=== PATIENT | male | born 1965 | race Caucasian/White ===

== ENCOUNTER 2022-09-11 05:57 | Day surgery (SDC) | payer BC ==
[2022-09-11] MEDS ORDERED: Lactated Ringers 1,000 ML IV SCH (06:30)
[2022-09-11] MEDS ORDERED: Xylocaine-Mpf 2% 5 Ml Vial ONE (07:53)
[2022-09-11] MEDS ORDERED: Versed 2 MG/2 ML Injection ONE (07:53)
[2022-09-11] MEDS ORDERED: DIPRIVAN 200 MG/20 ML IV ONE (07:53)
[2022-09-11 08:46] VITALS: O2SAT 94
[2022-09-11 09:09] VITALS: BP 114/88; PULSE 65
--- NOTE | 2022-09-11 09:15 | OP ---
SURGERY DATE/TIME: 09/11/2022 0756 PREOPERATIVE DIAGNOSIS: Screening exam. POSTOPERATIVE DIAGNOSIS: Normal colon. PROCEDURE: Colonoscopy. SURGEON: Dr. Tesfaye Echavarria. ANESTHESIA: MAC. Medications given by anesthesia department. HISTORY: The patient is a 57-year-old white male presenting now for screening colonoscopy. He was appraised of the risks of the procedure including the risk of perforation, phlebitis, untoward reaction to medication, bleeding and missed lesions. The patient verbalized his understanding and desired to have the procedure performed. DESCRIPTION OF PROCEDURE: The patient was given the medications by the anesthesia department. He had continuous pulse oximetry, ECG monitoring, intermittent blood pressure monitoring during the examination. He was placed in the left lateral decubitus position. A digital rectal examination was performed and revealed normal anal sphincter tone, no masses and a normal prostate. The flexible Olympus pediatric colonoscope was used to intubate the rectum. A view of the colon was developed sequentially to the cecum. Upon insertion and withdrawal, including a retroflex view in the rectum, no mucosal lesions were encountered. The scope was removed from the patient who tolerated the procedure well and was sent back to outpatient recovery in good condition. The prep was noted to be fair to good.
== END 2022-09-11 09:07 | disposition home or self-care (01) ==
LOC: SDC 05:57
PROVIDERS: ATTEND Family Medicine
DX: Z12.11 Encounter for screening for malignant neoplasm of colon (principal)
CPT/HCPCS: J2250; J2704

== ENCOUNTER 2024-02-15 20:27 | Emergency (ER) | payer BC ==
[2024-02-15 20:49] VITALS: RESP 18; TEMP 96.8
[2024-02-15] MEDS ORDERED: Zofran 4 MG/2 ML VIAL ONE (20:51)
[2024-02-15] MEDS ORDERED: MORPHINE SULFATE 4 MG INJ ONE (20:51)
[2024-02-15] MEDS ORDERED: Sodium Chloride 0.9% 1000 ML 1,000 ML ONE (20:51)
[2024-02-15] MEDS: Zofran 4 MG/2 ML VIAL IV ONE (20:53)
[2024-02-15] MEDS: Sodium Chloride 0.9% 1000 ML 1,000 ML IV STA (20:53)
[2024-02-15] MEDS: MORPHINE SULFATE 4 MG INJ IV ONE (20:54)
[2024-02-15 21:11] LABS: Absolute Neutrophil Ct (ANC) 9.74 x10^3/uL (1.4-6.9); BASOPHIL % 0.2 % (0.0-0.4); Basophil (Absolute #) 0.02 x10^3/uL (0-0.4); Eosinophil % 0.2 % (0.00-5.0); Eosinophil (Absolute #) 0.02 x10^3/uL (0-0.5); Hematocrit 44.8 % (42-50); Hemoglobin 15.2 g/dL (12.5-18.0); IMMATURE GRAN # 0.03 x10^3u/L (0.00-0.03); IMMATURE GRAN % 0.3 % (0.00-0.4); Lymphocyte (Absolute #) 0.56 x10^3/uL (1.0-4.6); Lymphocytes % 5.2 % (24.0-44.0); Mean Cell Volume 92.9 fL (78-100); Mean Corpuscular Hemoglobin 31.5 pg (26-32); Mean Corpuscular Hgb Concent. 33.9 g/dL (32-36); Mean Platelet Volume 10.4 fL (7.5-11.0); Monocyte (Absolute #) 0.35 x10^3/uL (0.0-1.3); Monocytes % 3.3 % (0.0-12.0); Neutrophil % 90.8 % (36.0-66.0); Platelet Count 231 x10^3/uL (150-450); Red Blood Count 4.82 x10^6/uL (4.1-5.6); Red Cell Distribution Width 12.9 % (11.5-14.0); White Blood Count 10.7 x10^3/uL (4.0-10.5)
[2024-02-15] MEDS ORDERED: Hydromorphone 1 mg/ml Injection ONE (21:16)
[2024-02-15] MEDS: Hydromorphone 1 mg/ml Injection IV ONE (21:17)
--- NOTE | 2024-02-15 21:19 | ERPHSYRPT ---
- History of Present Illness Time Seen by Provider: 02/15/24 21:16 Historian: patient Exam Limitations: no limitations Patient Subjective Stated Complaint: pt states he was at work when he began to have sharp pain to his stomach Triage Nursing Assessment: pt came into the er via wheelchair; pt transfer self to cot; pt is axo x3; c/o abd pain; pt states 8/10 pain to RUQ and RLQ; pt state pain radiates to rt flank region; abd is soft, round, tender; active bowel sounds in all quads; c/o N/V/D; skin pale, diaphoretic, cool; no respiratory distress present; hypertensive Physician History: Patient is 58-year-old male who was at work suddenly started having abdominal pain on the right flank which was radiating to the right groin associated with nausea. Patient denies same type of abdominal pain in the past. Patient denies any fever or chills or any blood in the urine or stool. Timing/Duration: today Activities at Onset: none Quality: cramping Abdominal Pain Onset Location: flank Pain Radiation: RLQ Severity of Pain-Max: moderate Severity of Pain-Current: severe Modifying Factors: Improves With: nothing Associated Symptoms: denies symptoms Previous symptoms: no prior history Body Map: 1 - pain 2 - pain radiation Allergies/Adverse Reactions: No Known Drug Allergies Allergy (Verified 02/15/24 20:38) Hx Tetanus, Diphtheria Vaccination/Date Given: No Hx Influenza Vaccination/Date Given: No Hx Pneumococcal Vaccination/Date Given: No Immunizations Up to Date: No Travel Risk - International Travel Have you traveled outside of the country in past 3 weeks: No - Emerging Infectious Disease Are you exhibiting symptoms associated with any current EIDs: Yes Symptoms: Abdominal Pain, Diarrhea, Fever - Review of Systems Constitutional: No Fever, No Chills Eyes: No Symptoms Ears, Nose, & Throat: No Symptoms Respiratory: No Cough, No Dyspnea Cardiac: No Chest Pain, No Edema, No Syncope Abdominal/Gastrointestinal: Abdominal Pain, Nausea, No Vomiting, No Diarrhea Genitourinary Symptoms: No Dysuria, No Frequency, No Hematuria, No Hesitancy Musculoskeletal: No Back Pain, No Neck Pain Skin: No Rash Neurological: No Dizziness, No Focal Weakness, No Sensory Changes Psychological: No Symptoms Endocrine: No Symptoms All Other Systems: Reviewed and Negative - Past Medical History Pertinent Past Medical History: Yes Neurological History: No Pertinent History ENT History: No Pertinent History Cardiac History: Hypertension Respiratory History: No Pertinent History Endocrine Medical History: No Pertinent History Musculoskeletal History: No Pertinent History GI Medical History: GERD, Ulcer History: No Pertinent History Psycho-Social History: No Pertinent History Male Reproductive Disorders: No Pertinent History Other Medical History: syncopal episodes per pt last episode middle Jul 2022. bleeding ulcer 1983 - Past Surgical History Past Surgical History: No Neuro Surgical History: No Pertinent History Cardiac: No Pertinent History Respiratory: No Pertinent History Gastrointestinal: No Pertinent History Genitourinary: No Pertinent History Musculoskeletal: No Pertinent History Male Surgical History: No Pertinent History - Social History Smoking Status: Never smoker Exposure to second hand smoke: No Drug Use: none - Nursing Vital Signs Nursing Vital Signs: Initial Vital Signs Temperature 96.8 F 02/15/24 20:40 Pulse Rate 77 02/15/24 20:40 Respiratory Rate 18 02/15/24 20:40 Blood Pressure 194/119 02/15/24 20:40 O2 Sat by Pulse Oximetry 97 02/15/24 20:40 Pain Scale Pain Intensity 9 - Physical Exam General Appearance: no apparent distress, alert Eye Exam: PERRL/EOMI, eyes nml inspection Ears, Nose, Throat Exam: normal ENT inspection, pharynx normal, moist mucous membranes Neck Exam: normal inspection, non-tender, supple, full range of motion Respiratory Exam: normal breath sounds, lungs clear, No respiratory distress Cardiovascular Exam: regular rate/rhythm, normal heart sounds Gastrointestinal/Abdomen Exam: soft, tenderness (right flank and groin), No mass, No ecchymosis, No pulsatile mass, No rebound, No organomegaly, No splenomegaly Male Genitalia Exam: normal genitalia Back Exam: normal inspection, normal range of motion, No CVA tenderness, No vertebral tenderness Extremity Exam: normal inspection, normal range of motion, pelvis stable Neurologic Exam: alert, oriented x 3, cooperative, normal mood/affect, nml cerebellar function, sensation nml, No motor deficits Skin Exam: normal color, warm, dry SpO2: 96 - Course Nursing assessment & vital signs reviewed: Yes - CT Exams Abdomen/Pelvis CT Interpretation: Tele-radiologist Report Ordered Tests: Active Orders 24 hr Category Date Time Status IV Insertion STAT Care 02/15/24 20:43 Active ABDOMEN AND PELVIS W&WO CONTRA [CT] Stat Exams 02/15/24 20:46 Completed AMYLASE Stat Lab 02/15/24 20:43 Completed CBC W DIFF Stat Lab 02/15/24 20:43 Completed CMP Stat Lab 02/15/24 20:43 Completed CULTURE,URINE Stat Lab 02/15/24 20:43 Received LIPASE Stat Lab 02/15/24 20:43 Completed TROPONIN Stat Lab 02/15/24 20:43 Completed UA W/RFX UR CULTURE Stat Lab 02/15/24 20:43 Completed Medication Summary Discontinued Medications Generic Name Dose Route Start Last Admin Trade Name Freq PRN Reason Stop Dose Admin Droperidol 1.25 mg 02/15/24 21:14 02/15/24 21:17 Droperidol 5 Mg/2 Ml Vial IV 02/15/24 21:15 1.25 mg STAT ONE Administration Droperidol Confirm 02/15/24 21:16 Droperidol 5 Mg/2 Ml Vial Administered 02/15/24 21:17 Dose 5 mg .ROUTE .STK-MED ONE Hydromorphone HCl 1 mg 02/15/24 21:14 02/15/24 21:17 Hydromorphone 1 Mg/1ml Inj IV 02/15/24 21:15 1 mg STAT ONE Administration Hydromorphone HCl Confirm 02/15/24 21:16 Hydromorphone 1 Mg/1ml Inj Administered 02/15/24 21:17 Dose 1 mg .ROUTE .STK-MED ONE Sodium Chloride 1,000 mls @ 999 mls/hr 02/15/24 20:40 02/15/24 21:54 Sodium Chloride 0.9% 1000 Ml IV 02/15/24 21:40 Infused .Q1H1M STA Infusion Sodium Chloride Confirm 02/15/24 20:51 Sodium Chloride 0.9% 1000 Ml Administered 02/15/24 20:52 Dose 1,000 mls @ ud .ROUTE .STK-MED ONE Ceftriaxone Sodium 1 gm in 100 mls @ 200 mls/hr 02/15/24 21:40 02/15/24 22:08 Rocephin 1 Gm / 100 Ml Nacl IV 02/15/24 22:09 200 ml/hr STAT ONE 200 mls/hr Administration Ceftriaxone Sodium Confirm 02/15/24 22:01 Rocephin 1 Gm / 100 Ml Nacl Administered 02/15/24 22:02 Dose 1 gm in 100 mls @ ud IV .STK-MED ONE Ketorolac Tromethamine 30 mg 02/15/24 21:32 02/15/24 21:33 Ketorolac Tromethamine 30 Mg/Ml Inj IV 02/15/24 21:33 30 mg STAT ONE Administration Ketorolac Tromethamine Confirm 02/15/24 21:32 Ketorolac Tromethamine 30 Mg/Ml Inj Administered 02/15/24 21:33 Dose 30 mg .ROUTE .STK-MED ONE Morphine Sulfate 4 mg 02/15/24 20:40 02/15/24 20:54 Morphine Sulfate 4 Mg/Ml Injection IV 02/15/24 20:41 4 mg STAT ONE Administration Morphine Sulfate Confirm 02/15/24 20:51 Morphine Sulfate 4 Mg/Ml Injection Administered 02/15/24 20:52 Dose 4 mg .ROUTE .STK-MED ONE Ondansetron HCl 4 mg 02/15/24 20:40 02/15/24 20:53 Ondansetron Hcl 4 Mg/2 Ml Vial IV 02/15/24 20:41 4 mg STAT ONE Administration Ondansetron HCl Confirm 02/15/24 20:51 Ondansetron Hcl 4 Mg/2 Ml Vial Administered 02/15/24 20:52 Dose 4 mg .ROUTE .STK-MED ONE Lab/Rad Data: Laboratory Result Diagrams 02/15/24 20:43 02/15/24 20:43 Laboratory Results 02/15/24 02/15/24 02/15/24 Range/Units 20:43 20:43 20:43 WBC 10.7 H (4.0-10.5) x10^3/uL RBC 4.82 (4.1-5.6) x10^6/uL Hgb 15.2 (12.5-18.0) g/dL Hct 44.8 (42-50) % MCV 92.9 (78-100) fL MCH 31.5 (26-32) pg MCHC 33.9 (32-36) g/dL RDW 12.9 (11.5-14.0) % Plt Count 231 (150-450) x10^3/uL MPV 10.4 (7.5-11.0) fL Gran % 90.8 H (36.0-66.0) % Immature Gran % (Auto) 0.3 (0.00-0.4) % Nucleat RBC Rel Count 0.0 (0.00-0.1) % Eos # (Auto) 0.02 (0-0.5) x10^3/uL Immature Gran # (Auto) 0.03 (0.00-0.03) x10^3u/L Absolute Lymphs (auto) 0.56 L (1.0-4.6) x10^3/uL Absolute Monos (auto) 0.35 (0.0-1.3) x10^3/uL Absolute Nucleated RBC 0.00 (0.00-0.01) x10^3u/L Lymphocytes % 5.2 L (24.0-44.0) % Monocytes % 3.3 (0.0-12.0) % Eosinophils % 0.2 (0.00-5.0) % Basophils % 0.2 (0.0-0.4) % Absolute Granulocytes 9.74 H (1.4-6.9) x10^3/uL Basophils # 0.02 (0-0.4) x10^3/uL Sodium 141 (135-145) mmol/L Potassium 3.8 (3.5-5.1) mmol/L Chloride 106 (98-107) mmol/L Carbon Dioxide 23 (22-30) mmol/L Anion Gap 16.2 H (5-15) MEQ/L BUN 16 (9-20) mg/dL Creatinine 1.43 H (0.66-1.25) mg/dL Estimated GFR 56.4 ML/MIN Glucose 156 H (74-106) mg/dL Calcium 8.7 (8.4-10.2) mg/dL Total Bilirubin 0.60 (0.2-1.3) mg/dL AST 24 (17-59) U/L ALT 28 (0-50) U/L Alkaline Phosphatase 100 (38-126) U/L Troponin I < 0.012 (0.000-0.033) ng/mL Serum Total Protein 8.2 (6.3-8.2) g/dL Albumin 4.5 (3.5-5.0) g/dL Amylase 48 (30-110) U/L Lipase 39 (23-300) U/L Urine Color Yellow (Yellow) Urine Appearance Clear (Clear) Urine pH 6.0 (4.6-8.0) Ur Specific [place] 1.020 (1.005-1.030) Urine Protein 100 A (Negative) Urine Glucose (UA) Negative (Negative) mg/dL Urine Ketones Negative (Negative) Urine Blood Large A (Negative) Urine Nitrite Negative (Negative) Urine Bilirubin Negative (Negative) Urine Urobilinogen 1.0 A (0.2) mg/dL Ur Leukocyte Esterase Negative (Negative) U Hyaline Cast (Auto) NONE SEEN (0-2) /LPF Urine Microscopic RBC 51-100 A (0-5) /HPF Urine Microscopic WBC 0-2 (0-5) /HPF Ur Epithelial Cells None Seen (None Seen) /HPF Urine Bacteria None Seen (None Seen) /HPF Urine Culture Reflexed YES (NO) 0023 CT/ABDOMEN AND PELVIS W&WO CONTRA Indication: Right groin and costophrenic angle pain. Multiple contiguous axial images obtained through the abdomen and pelvis prior to and following 80 cc Isovue 370 contrast. Comparison: None Lung bases are clear. Heart not enlarged. Noncontrasted images demonstrates punctate proximal right ureter calculus (image 40, series 2). Proximal right ureter slightly prominent favoring partial obstructive uropathy. No other pathologic visceral calcifications/calculi. Noncontrasted stomach and bowel loops appear nonobstructed. Descending and transverse duodenum demonstrates a complex or wall thickening with stranding favoring duodenitis. Tiny adjacent free fluid presumed reactive. Normal appendix. Postcontrast images demonstrate normal visceral enhancement and renal excretion. Kidneys demonstrate bilateral parapelvic renal cysts and 2.9 cm right upper pole cortical cyst. Remaining liver, gallbladder, pancreas, spleen, adrenal glands, kidneys, ureters, bladder, and aorta are unremarkable. No pathologic retroperitoneal lymphadenopathy. Osseous structures intact with mild degenerative changes throughout the lumbar spine. Tiny fatty left inguinal hernia. Impression: 1. Punctate calculus proximal right ureter producing minimal partial obstructive uropathy. 2. Duodenal circumferential wall thickening with stranding favoring duodenitis. Tiny reactive free fluid. 3. Chronic findings including bilateral renal cysts, tiny fatty left inguinal hernia, and mild lumbar degenerative spondylosis. - Progress Counseled pt/family regarding: lab results, diagnosis, need for follow-up, rad results Medical Desision Making - Diagnostic Testing Diagnostic test were ordered, analyzed, and reviewed by me: Yes Radiological Interpretation: Teleradiologist Report - Risk of complications The pt has a mod risk of morbidity or mortality based on: Need for prescription drug management - Departure Departure Disposition: Home Clinical Impression: Renal calculus, right, Duodenitis Condition: Stable Critical Care Time: No Referrals: DYLAN ROBLEDO MD [Primary Care Provider] - Follow up/PCP as directed Instructions: Kidney Stones (DC), Kidney stones in adults, Severe Abdominal Pain, Adult (DC) Additional Instructions: Discharge/Care Plan IVANNA TAMEZ was seen on 02/15/24 in the Emergency Room. The patient was counseled regarding Diagnosis,Lab results, Imaging studies, need for follow up and when to return to the Emergency Room. Prescriptions given: Discharge Note I have spoken with the patient and/or caregivers. I have explained the patient's condition, diagnosis and treatment plan based on the information available to me at this time. I have answered the patient's and/or caregiver's questions and addressed any concerns. The patient and/or caregivers have as good understanding of the patient's diagnosis, condition and treatment plan as can be expected at this point. The vital signs have been stable. The patient's condition is stable and appropriate for discharge from the emergency department. The patient will pursue further outpatient evaluation with the primary care physician or other designated or consulting physician as outlined in the disc harge instructions. The patient and/or caregivers are agreeable to this plan of care and follow-up instructions have been explained in detail. The patient and/or caregivers have received these instruction. The patient/and or caregivers are aware that any significant change in condition or worsening of symptoms should prompt an immediate return to this or the closest emergency department or call 911. IVANNA TAMEZ was seen on 02/15/24 n the Emergency Room. At that time you were treated for an emergent condition, during your visit Laboratory, Radiology and/or other procedures may have been ordered. It is very important that you follow-up with your Primary Care Physician DYLAN ROBLEDO within the next 24-48 hours to review your Emergency Room visit and the final results of testing that was ordered. Some test results such as Urine Cultures, Blood Cultures, and other cultures if ordered will not be finalized for 24-48 hours. If you do not have a Primary Care Provider please call the medical records de partment at [phone] ext [phone] to obtain a copy of your results or you may sign into our patient portal to obtain these results by visiting us [email or web address] and completing the following steps: 1. Click on the Patient Portal link 2. Click the Patient Self Enrollment Link to complete the enrollment form and entering your 3. Once the enrollment form is completed you will receive an email with a temporary ID and password at the email address you provided. 4. Next choose a user name and password. Your user name must be at least 4 characters long and your password must be at least 4 characters long. 5. Choose a security question from the list and provide your answer to the question. If you already have signed into the Health Portal you may access your Health Care Information 07/05 by the following steps: 1. Login to our website @ [email or web address] 2. Enter your original user name and password. FAQS The [facility] Health Portal is an online tool that contains your Lab Results, Radiology Reports, Visit History, Discharge Instructions and Health Summary Lab and Radiology Results will not be available for 72 hours on the portal. The Portal is a secure site, passwords are encryted and URLs are re-written so they cannot be copied and pasted. You and authorized family members are the only ones who can access your Portal. Also there is a timeout feature that protects your information if you leave the Portal page open. If you have technical difficulty please use the Contact Us link on the page this will allow you to submit any questions you have regarding the Portal or you may contact the Medical Record Department at [phone]. Prescriptions: Ciprofloxacin [Cipro 500 MG] 500 mg PO BID #14 tablet Cyclobenzaprine HCl 10 mg [Cyclobenzaprine 10 MG] 10 mg PO TID #15 tablet Tamsulosin HCl 0.4 mg [Flomax 0.4 MG] 0.4 mg PO DAILY #30 cap PANTOPRAZOLE 40 mg Tablet [Protonix 40MG Tablet] 40 mg PO QPM #30 tab
[2024-02-15 21:25] LABS: Appearance Clear (Clear); Bacteria None Seen /HPF (None Seen); Bilirubin Negative (Negative); Blood Large (Negative); Epithelial Cells None Seen /HPF (None Seen); Glucose, Urine Negative (Negative); Hyaline Casts NONE SEEN /LPF (0-2); Ketones Negative (Negative); Leukocyte Esterase Negative (Negative); Nitrite Negative (Negative); Protein,Urine Dip 100 (Negative); RBC 51-100 /HPF (0-5); WBC 0-2 /HPF (0-5)
[2024-02-15] MEDS ORDERED: TORAdol 30 mg Injection ONE (21:32)
[2024-02-15 21:33] LABS: ADD URINE CULTURE? YES (NO)
[2024-02-15] MEDS: TORAdol 30 mg Injection IV ONE (21:33)
[2024-02-15 21:36] LABS: ALBUMIN 4.5 g/dL (3.5-5.0); ALKALINE PHOSPHATASE 100 U/L (38-126); AMYLASE 48 U/L (30-110); ANION GAP 16.2 MEQ/L (5-15); BLOOD UREA NITROGEN 16 mg/dL (9-20); CHLORIDE 106 mmol/L (98-107); Calcium 8.7 mg/dL (8.4-10.2); Carbon Dioxide 23 mmol/L (22-30); Creatinine 1 1.43 mg/dL (0.66-1.25); EST GLOMERULAR FILTRATION RATE 56.4 ML/MIN; Glucose 156 mg/dL (74-106); LIPASE 39 U/L (23-300); Potassium 3.8 mmol/L (3.5-5.1); SGOT/AST 24 U/L (17-59); SGPT/ALT 28 U/L (0-50); SODIUM 141 mmol/L (135-145); TROPONIN < 0.012 ng/mL (0.000-0.033); Total Protein 8.2 g/dL (6.3-8.2)
[2024-02-15] MEDS ORDERED: ROCEPHIN 1 GM / 100 ML NaCl 1 GM/100 ML IVPB IV ONE (22:01)
[2024-02-15] MEDS: ROCEPHIN 1 GM / 100 ML NaCl 1 GM/100 ML IVPB IV ONE (22:08)
--- NOTE | 2024-02-15 22:17 | XRAY ---
Indication: Right groin and costophrenic angle pain. Multiple contiguous axial images obtained through the abdomen and pelvis prior to and following 80 cc Isovue 370 contrast. Comparison: None Lung bases are clear. Heart not enlarged. Noncontrasted images demonstrates punctate proximal right ureter calculus (image 40, series 2). Proximal right ureter slightly prominent favoring partial obstructive uropathy. No other pathologic visceral calcifications/calculi. Noncontrasted stomach and bowel loops appear nonobstructed. Descending and transverse duodenum demonstrates a complex or wall thickening with stranding favoring duodenitis. Tiny adjacent free fluid presumed reactive. Normal appendix. Postcontrast images demonstrate normal visceral enhancement and renal excretion. Kidneys demonstrate bilateral parapelvic renal cysts and 2.9 cm right upper pole cortical cyst. Remaining liver, gallbladder, pancreas, spleen, adrenal glands, kidneys, ureters, bladder, and aorta are unremarkable. No pathologic retroperitoneal lymphadenopathy. Osseous structures intact with mild degenerative changes throughout the lumbar spine. Tiny fatty left inguinal hernia. Impression: 1. Punctate calculus proximal right ureter producing minimal partial obstructive uropathy. 2. Duodenal circumferential wall thickening with stranding favoring duodenitis. Tiny reactive free fluid. 3. Chronic findings including bilateral renal cysts, tiny fatty left inguinal hernia, and mild lumbar degenerative spondylosis.
[2024-02-15 22:23] VITALS: PULSE 86
[2024-02-15 22:26] VITALS: O2SAT 96
[2024-02-15] MEDS ORDERED: Flomax 0.4 MG ONE (22:31)
[2024-02-15] MEDS ORDERED: PROTONIX 40 MG IV IV ONE (22:31)
[2024-02-15] MEDS: Flomax 0.4 MG PO STA (22:32)
[2024-02-15] MEDS: PROTONIX 40 MG IV IV ONE (22:32)
[2024-02-15 22:43] VITALS: BP 169/113
== END 2024-02-15 22:55 | disposition home or self-care (01) ==
LOC: ED 20:27
DX: N20.0 Calculus of kidney (principal); K29.80 Duodenitis without bleeding; R10.9 Unspecified abdominal pain; R11.0 Nausea; I10 Essential (primary) hypertension; Z79.899 Other long term (current) drug therapy
CPT/HCPCS: 36000; 36415; 74178; 80053; 81001; 82150; 83690; 84484; 85025; 87086; 93005; 96365; 96374; 96375; 99284; J0696; J1170; J1885; J2270; J2405; A9270-GY

== ENCOUNTER 2024-02-17 09:01 | Emergency (ER) | payer BC ==
[2024-02-17 09:21] VITALS: TEMP 98
[2024-02-17] MEDS ORDERED: TORAdol 30 mg Injection ONE (09:28)
[2024-02-17] MEDS ORDERED: Hydromorphone 1 mg/ml Injection ONE (09:29)
--- NOTE | 2024-02-17 09:33 | ERPHSYRPT ---
- History of Present Illness Time Seen by Provider: 02/17/24 09:29 Historian: patient Exam Limitations: no limitations Patient Subjective Stated Complaint: C/O right sided flank pain that returned at 0730 today. Indicates pain isn't too bad yet but doesn't want it to get to where it was on Sunday night when he had to come to the ER. Triage Nursing Assessment: Patient ambulated back to ER. He is alert and oriented. No SOB. Skin tone normal. YUN WNL. Physician History: C/O right sided flank pain that returned at 0730 today. Indicates pain isn't too bad yet but doesn't want it to get to where it was on Sunday night when he had to come to the ER. Timing/Duration: day(s) (2 days ago) Quality: dullness Abdominal Pain Onset Location: flank (right) Pain Radiation: RLQ Severity of Pain-Max: mild Severity of Pain-Current: mild Modifying Factors: Improves With: nothing Associated Symptoms: denies symptoms Allergies/Adverse Reactions: No Known Drug Allergies Allergy (Verified 02/17/24 09:07) Hx Tetanus, Diphtheria Vaccination/Date Given: No Hx Influenza Vaccination/Date Given: No Hx Pneumococcal Vaccination/Date Given: No Travel Risk - International Travel Have you traveled outside of the country in past 3 weeks: No - Emerging Infectious Disease Are you exhibiting symptoms associated with any current EIDs: No Symptoms: Abdominal Pain, Diarrhea, Fever - Review of Systems Constitutional: No Symptoms Eyes: No Symptoms Ears, Nose, & Throat: No Symptoms Respiratory: No Symptoms Cardiac: No Symptoms Abdominal/Gastrointestinal: Abdominal Pain Genitourinary Symptoms: Flank Pain (right side) Musculoskeletal: No Symptoms Neurological: No Symptoms Psychological: No Symptoms Endocrine: No Symptoms Hematologic/Lymphatic: No Symptoms - Past Medical History Pertinent Past Medical History: Yes Neurological History: No Pertinent History ENT History: No Pertinent History Cardiac History: Hypertension Respiratory History: No Pertinent History Endocrine Medical History: No Pertinent History Musculoskeletal History: No Pertinent History GI Medical History: GERD, Ulcer History: No Pertinent History Psycho-Social History: No Pertinent History Male Reproductive Disorders: No Pertinent History Other Medical History: syncopal episodes per pt last episode middle Jul 2022. bleeding ulcer 1983, kidney stone - Past Surgical History Past Surgical History: No Neuro Surgical History: No Pertinent History Cardiac: No Pertinent History Respiratory: No Pertinent History Gastrointestinal: No Pertinent History Genitourinary: No Pertinent History Musculoskeletal: No Pertinent History Male Surgical History: No Pertinent History - Social History Smoking Status: Never smoker Exposure to second hand smoke: No Drug Use: none - Nursing Vital Signs Nursing Vital Signs: Initial Vital Signs Pulse Rate 85 02/17/24 09:11 Respiratory Rate 16 02/17/24 09:11 Blood Pressure 188/112 02/17/24 09:11 O2 Sat by Pulse Oximetry 94 L 02/17/24 09:11 Pain Scale Pain Intensity 3 - Physical Exam General Appearance: no apparent distress Eye Exam: PERRL/EOMI Ears, Nose, Throat Exam: normal ENT inspection Neck Exam: normal inspection Respiratory Exam: normal breath sounds Cardiovascular Exam: regular rate/rhythm Gastrointestinal/Abdomen Exam: soft, tenderness Back Exam: normal inspection Extremity Exam: normal inspection Neurologic Exam: alert, oriented x 3, cooperative Skin Exam: normal color SpO2 Interpretation: normal SpO2: 93 O2 Delivery: Room Air - Course Nursing assessment & vital signs reviewed: Yes Ordered Tests: Medication Summary Discontinued Medications Generic Name Dose Route Start Last Admin Trade Name Freq PRN Reason Stop Dose Admin Droperidol 1.25 mg 02/17/24 09:20 Droperidol 5 Mg/2 Ml Vial IM 02/17/24 09:21 STAT ONE Hydromorphone HCl 1 mg 02/17/24 09:20 Hydromorphone 1 Mg/1ml Inj IM 02/17/24 09:21 STAT ONE Ketorolac Tromethamine 60 mg 02/17/24 09:20 Ketorolac Tromethamine 30 Mg/Ml Inj IM 02/17/24 09:21 STAT ONE - Progress Progress: improved Counseled pt/family regarding: diagnosis, need for follow-up - Departure Departure Disposition: Home Clinical Impression: Renal calculus, right Condition: Stable Critical Care Time: No Referrals: DYLAN ROBLEDO MD [Primary Care Provider] - Follow up/PCP as directed Instructions: Kidney Stones (DC), Flank Pain Additional Instructions: Discharge/Care Plan IVANNA TAMEZWN was seen on 02/17/24 in the Emergency Room. The patient was counseled regarding Diagnosis,Lab results, Imaging studies, need for follow up and when to return to the Emergency Room. Prescriptions given: Discharge Note I have spoken with the patient and/or caregivers. I have explained the patient's condition, diagnosis and treatment plan based on the information available to me at this time. I have answered the patient's and/or caregiver's questions and addressed any concerns. The patient and/or caregivers have as good understanding of the patient's diagnosis, condition and treatment plan as can be expected at this point. The vital signs have been stable. The patient's condition is stable and appropriate for discharge from the emergency department. The patient will pursue further outpatient evaluation with the primary care physician or other designated or consulting physician as outlined in the discharge instructions. The patient and/or caregivers are agreeable to this plan of care and follow-up instructions have been explained in detail. The patient and/or caregivers have received these instruction. The patient/and or caregivers are aware that any significant change in condition or worsening of symptoms should prompt an immediate return to this or the closest emergency department or call 911. IVANNA TAMEZ was seen on 02/17/24 n the Emergency Room. At that time you were treated for an emergent condition, during your visit Laboratory, Radiology and/or other procedures may have been ordered. It is very important that you follow-up with your Primary Care Physician DYLAN ROBLEDO within the next 24-48 hours to review your Emergency Room visit and the final results of testing that was ordered. Some test results such as Urine Cultures, Blood Cultures, and other cultures if ordered will not be finalized for 24-48 hours. If you do not have a Primary Care Provider please call the medical records department at [phone] ext [phone] to obtain a copy of your results or you may sign into our patient portal to obtain these results by visiting us @ [email or web address] and completing the following steps: 1. Click on the Patient Portal link 2. Click the Patient Self Enrollment Link to complete the enrollment form and entering your 3. Once the enrollment form is completed you will receive an email with a temporary ID and password at the email address you provided. 4. Next choose a user name and password. Your user name must be at least 4 characters long and your password must be at least 4 characters long. 5. Choose a security question from the list and provide your answer to the question. If you already have signed into the Health Portal you may access your Health Care Information 07/05 by the following steps: 1. Login to our website @ [email or web address] 2. Enter your original user name and password. FAQS The [facility] Health Portal is an online tool that contains your Lab Results, Radiology Reports, Visit History, Discharge Instructions and Health Summary Lab and Radiology Results will not be available for 72 hours on the portal. The Portal is a secure site, passwords are encryted and URLs are re-written so they cannot be copied and pasted. You and authorized family members are the only ones who can access your Portal. Also there is a timeout feature that protects your information if you leave the Portal page open. If you have technical difficulty please use the Contact Us link on the page this will allow you to submit any questions you have regarding the Portal or you may contact the Medical Record Department at [phone].
[2024-02-17] MEDS: TORAdol 30 mg Injection IM ONE (09:35)
[2024-02-17] MEDS: Hydromorphone 1 mg/ml Injection IM ONE (09:38)
[2024-02-17 10:06] VITALS: BP 155/98; PULSE 80; RESP 16; O2SAT 98
== END 2024-02-17 10:07 | disposition home or self-care (01) ==
LOC: ED 09:01
DX: K80.50 Calculus of bile duct without cholangitis or cholecystitis without obstruction (principal); R10.9 Unspecified abdominal pain; I10 Essential (primary) hypertension
CPT/HCPCS: 96372; 99283; J1170; J1885

== ENCOUNTER 2024-04-24 10:30 | Day surgery (SDC) | payer BC ==
[~2024-04-24 10:30] MED LIST: Sensorcaine 0.25% 10 ML ONE
[2024-04-24] MEDS ORDERED: MEFOXIN 2 GM PREMIX** 2 GM/50 ML ML IV ONE (10:39)
[2024-04-24] MEDS ORDERED: Lactated Ringers 1,000 ML IV ONE ×2 (10:39→14:25)
[2024-04-24 10:49] VITALS: RESP 18
[2024-04-24] MEDS: MEFOXIN 2 GM PREMIX** 2 GM/50 ML ML IV SCH (11:20)
[2024-04-24] MEDS: Lactated Ringers 1,000 ML IV SCH (11:20)
[2024-04-24 11:38] LABS: ANION GAP 14.4 MEQ/L (5-15); Calcium 9.2 mg/dL (8.4-10.2); Creatinine 1 1.21 mg/dL (0.66-1.25); Potassium 4.3 mmol/L (3.5-5.1)
[2024-04-24] MEDS ORDERED: ROCURONIUM BROMIDE IV ONE (13:34)
[2024-04-24] MEDS ORDERED: SUBLIMAZE 100 MCG/2 ML ONE ×3 (13:35→15:49)
[2024-04-24] MEDS ORDERED: DIPRIVAN 200 MG/20 ML IV ONE (13:35)
[2024-04-24] MEDS ORDERED: Versed 2 MG/2 ML Injection ONE (13:36)
[2024-04-24] MEDS ORDERED: Sensorcaine 0.25% 10 ML ONE (13:57)
[2024-04-24] MEDS ORDERED: Ephedrine Sulfate 50 MG/ML ONE (14:33)
[2024-04-24] MEDS ORDERED: BRIDION 200MG/2ML IV ONE (15:12)
[2024-04-24] MEDS ORDERED: TRANDATE 20 MG/4 ML SYRINGE IV ONE (15:37)
[2024-04-24] MEDS ORDERED: Zofran 4 MG/2 ML VIAL ONE (15:47)
[2024-04-24] MEDS ORDERED: TORAdol 30 mg Injection ONE (15:57)
[2024-04-24] MEDS ORDERED: Hydromorphone 1 mg/ml Injection ONE ×2 (16:28→17:08)
[2024-04-24 17:43] VITALS: TEMP 95.7
[2024-04-24 18:19] VITALS: BP 152/86; PULSE 65; O2SAT 93
--- NOTE | 2024-04-25 12:33 | OP ---
SURGERY DATE/TIME: 04/24/2024 0124 - 0744 PREOPERATIVE DIAGNOSIS: Cholecystitis with cholelithiasis. POSTOPERATIVE DIAGNOSIS: Cholecystitis with cholelithiasis. PROCEDURE: Laparoscopic cholecystectomy. SURGEON: Sarkis Almendarez MD ANESTHESIA: General. ESTIMATED BLOOD LOSS: Minimal. CONDITION: Stable. COMPLICATIONS: None. SPECIMEN: Gallbladder. HISTORY OF PRESENT ILLNESS: The patient is a 58-year-old male who did present with acute episode of upper abdominal pain. Imaging showing gallstones. His pain did resolve, yet it was overall consistent with biliary colic. Discussion was had with the patient. Risks of infection, bleeding, injury to nearby structure, and nonoperative management but do recommend cholecystectomy given his episode and he does elect to proceed with surgery. FINDINGS: Contracted, fatty gallbladder with a short duct, stapled. DESCRIPTION OF PROCEDURE AND FINDINGS: The patient brought to the operating room. General anesthesia induced, routinely positioned, prepped, draped, time-out performed. Received a preoperative antibiotic. The 5 mm Optiview trocar placed in the left upper quadrant. Pneumoperitoneum established. An 11 mm right paramedian trocar placed. Two additional 5 mm trocars placed in right upper quadrant. The patient positioned. The gallbladder is retracted and it is a contracted, very fatty gallbladder and in the triangle, there is a fatty, reactive, chronic reaction. Careful dissection was performed and with the contraction, the cystic duct is quite shortened and the common duct is clearly visualized. The cystic and common junction is visualized. The critical view is clearly obtained. This appears most amenable to stapling with the short wide duct, so the left upper quadrant port is upsized to a 12 trocar site. The cystic duct fundic junction is divided with a white load GIOVANNI stapler. The gallbladder was taken off the liver bed, placed in a specimen bag, removed through the 12 trocar site. Right upper quadrant reinspected. Staple line clipped satisfactorily. There is good hemostasis. The 12 and 11 trocar sites closed with 0 Vicryl and interrupted suture passer. Marcaine injected to all port sites. Skin was closed with 4-0 Vicryl sutures, Steri-Strips. Sterile dressings applied. All counts were correct. The patient tolerated the procedure well. Plans for extubation.
== END 2024-04-24 18:15 | disposition home or self-care (01) ==
LOC: SDC 10:30
PROVIDERS: ATTEND Surgery
DX: K80.10 Calculus of gallbladder with chronic cholecystitis without obstruction (principal)
CPT/HCPCS: 36415; 80048; 93005; J0694; J1170; J1885; J2250; J2405; J2704; J3010